=== PATIENT | female | born 1960 | race Caucasian/White ===

== ENCOUNTER → 2017-09-14 | Outpatient (CLI) | payer OTHER ==
--- NOTE | 2017-09-17 08:46 | MM ---
Reason for exam: screening (asymptomatic). Last mammogram was performed 2 years and 1 month ago. History: Patient is postmenopausal. Benign ultrasound-guided core biopsy of the right breast, September 05, 2001. Core biopsy of the right breast. Took hormonal contraceptives for 6 years. Physical Findings: A clinical breast exam by your physician is recommended on an annual basis and results should be correlated with mammographic findings. MG Screening Mammo w CAD Bilateral CC and MLO view(s) were taken. Prior study comparison: August 25, 2015, bilateral MG foundation screening mammo. June 23, 2013, bilateral digital screening mammo w/CAD. There are scattered fibroglandular densities. Asymmetric breast tissue in the left breast. This finding is changed when compared with previous exams. ASSESSMENT: Incomplete: need additional imaging evaluation, BI-RAD 0 RECOMMENDATION: Special view mammogram of the left breast. If lesion persists on supplemental views, image directed ultrasound is recommended. [facility] will attempt to contact patient to return for supplemental views and ultrasound if indicated.
== END | disposition home or self-care (01) ==
LOC: RADMAMWWP 13:27
PROVIDERS: ATTEND Obstetrics & Gynecology
DX: Z12.31 Encounter for screening mammogram for malignant neoplasm of breast (principal); Z80.41 Family history of malignant neoplasm of ovary
CPT/HCPCS: 86304; 36415; G0202

== ENCOUNTER → 2017-09-18 | Outpatient (CLI) | payer OTHER ==
--- NOTE | 2017-09-19 08:12 | MM ---
Reason for exam: additional evaluation requested from abnormal screening. Last mammogram was performed less than 1 month ago. History: Patient is postmenopausal. Benign ultrasound-guided core biopsy of the right breast, September 05, 2001. Core biopsy of the right breast. Took hormonal contraceptives for 6 years. Physical Findings: Nurse did not find any significant physical abnormalities on exam. MG Work Up Mamm w CAD LT CC and MLO view(s) were taken of the left breast. Prior study comparison: September 14, 2017, bilateral MG screening mammo w CAD. August 25, 2015, bilateral MG foundation screening mammo. June 23, 2013, bilateral digital screening mammo w/CAD. The breast tissue is heterogeneously dense. This may lower the sensitivity of mammography. 9mm isodense nodular asymmetry appears to become larger with spot compression and may localize to 2-3 o'clock on the lateral view. The anterior asymmetry does not persist. These results were verbally communicated with the patient and result sheet given to the patient on 09/18/17. ASSESSMENT: Incomplete: need additional imaging evaluation, BI-RAD 0 RECOMMENDATION: Ultrasound of the left breast. (upper outer quadrant).
--- NOTE | 2017-09-19 08:17 | USB ---
Reason for exam: additional evaluation requested from abnormal screening. History: Patient is postmenopausal. Benign ultrasound-guided core biopsy of the right breast, September 05, 2001. Core biopsy of the right breast. Took hormonal contraceptives for 6 years. US Breast Workup Limited LT Left breast ultrasound demonstrates a 4mm oval, cystic lesion at 1 o'clock, benign. This does not correspond to the mammographic finding, for which a 6 month follow up is recommended. These results were verbally communicated with the patient and result sheet given to the patient on 09/18/17. ASSESSMENT: Probably benign, BI-RAD 3 RECOMMENDATION: Follow-up diagnostic mammogram of the left breast in 6 months.
== END | disposition home or self-care (01) ==
LOC: RADMAMWWP 12:52
PROVIDERS: ATTEND Obstetrics & Gynecology
DX: R92.8 Other abnormal and inconclusive findings on diagnostic imaging of breast (principal)
CPT/HCPCS: 76642; G0206

== ENCOUNTER → 2019-02-06 | Outpatient (CLI) | payer OTHER ==
--- NOTE | 2019-02-07 10:31 | BD ---
EXAMINATION TYPE: Axial Bone Density DATE OF EXAM: 02/06/2019 COMPARISON: 02.15.2016 CLINICAL HISTORY: 58 YR OLD FEMALE....ICD-10 CODE: M89.9 DISORDER OF BONE Height: 62 Weight: 147 FRAX RISK QUESTIONS: NOTHING TO NOTE HERE RISK FACTORS HISTORY OF: NO FRACTURES AN ADULT Diet low in dairy products/other sources of calcium: YES A BIT LOW Postmenopausal woman: YES AT AGE 48 MEDICATIONS: Osteoporosis Medications: YES, FOSAMAX FOR 3 YRS Additional Medications: PROZAC, VIT D, Additional History: GLAUCOMA, EXAM MEASUREMENTS: Bone mineral densitometry was performed using the [employer] System. Bone mineral density as measured about the Lumbar spine is: ----- L1-L4(G/cm2): 1.084 T Score Values are as follows: ----- L1: -0.6 ----- L2: -1.7 ----- L3: -1.2 ----- L4: 0.1 ----- L1-L4: -0.8 Bone mineral density has: Increased 5.7% since study of: 02.15.2016 Bone mineral density about the R hip (g/cm2): 0.589 Bone mineral density about the L hip (g/cm2): 0.621 T Score values are as follows: -----R Neck: -2.9 -----L Neck: -2.7 -----R Total: -3.3 -----L Total: -3.1 Bone mineral density has: Increased 1.9% since study of: 02.15.2016 FRAX%s: THERE IS A 13.5% CHANCE FOR A MAJOR OSTEOPOROTIC FX AND A 3.4% FOR HIP.....PROBABILITY FOR FX IN 10 YRS TIME IMPRESSION: Osteoporosis bilateral femora. NOTE: T-SCORE=SD OF THE YOUNG ADULT MEAN.
--- NOTE | 2019-02-07 10:51 | MM ---
Reason for exam: screening (asymptomatic). Last mammogram was performed 1 year and 5 months ago. History: Patient is postmenopausal. Benign ultrasound-guided core biopsy of the right breast, September 05, 2001. Core biopsy of the right breast. Took hormonal contraceptives for 6 years. Physical Findings: A clinical breast exam by your physician is recommended on an annual basis and results should be correlated with mammographic findings. MG Screening Mammo w CAD Bilateral CC and MLO view(s) were taken. Prior study comparison: September 18, 2017, left breast MG work up mamm w CAD LT. September 14, 2017, bilateral MG screening mammo w CAD. The breast tissue is heterogeneously dense. This may lower the sensitivity of mammography. There is chronic nodularity in the right breast. No significant changes when compared with prior studies. ASSESSMENT: Benign, BI-RAD 2 RECOMMENDATION: Routine screening mammogram of both breasts in 1 year.
== END | disposition home or self-care (01) ==
LOC: RADMAMWWP 15:15
PROVIDERS: ATTEND Obstetrics & Gynecology
DX: Z12.31 Encounter for screening mammogram for malignant neoplasm of breast (principal); M81.0 Age-related osteoporosis without current pathological fracture; Z80.41 Family history of malignant neoplasm of ovary
CPT/HCPCS: 77067; 77080; 86304

== ENCOUNTER → 2019-03-25 | Outpatient (CLI) | payer OTHER ==
[2019-03-25 15:43] LABS: HCT 44.7 % (34.0-46.0); HGB 14.4 gm/dL (11.4-16.0); MCH 31.3 pg (25.0-35.0); MCHC 32.2 g/dL (31.0-37.0); Mean Platelet Volume 7.6; Platelet Count 231 k/uL (150-450); RBC 4.61 m/uL (3.80-5.40); RDW 14.1 % (11.5-15.5); WBC 5.5 k/uL (3.8-10.6)
[2019-03-25 18:59] LABS: Albumin 4.5 g/dL (3.80-4.90); Albumin/Globulin Ratio 2.65 (1.60-3.17); Anion Gap 5.6 mmol/L (4.00-12.00); Calcium 8.7 mg/dL (8.7-10.3); Carbon Dioxide 20.4 mmol/L (21.6-31.8); Globulin 1.7 g/dL (1.6-3.3); LDL Cholesterol,Calculated 154.2 mg/dL (0.0-131.0); Potassium 3.9 mmol/L (3.5-5.5); Total Bilirubin 0.5 mg/dL (0.3-1.2); Total Protein 6.2 g/dL (6.2-8.2); VLDL Calculation 18.8 mg/dL (5.00-40.00)
== END | disposition home or self-care (01) ==
LOC: LABWHC1 14:28
PROVIDERS: ATTEND Internal Medicine
DX: M81.0 Age-related osteoporosis without current pathological fracture (principal); N20.0 Calculus of kidney; E78.5 Hyperlipidemia, unspecified
CPT/HCPCS: 36415; 80053; 80061; 84443; 85027

== ENCOUNTER → 2020-10-19 | Outpatient (CLI) | payer SELFPAY | END | disposition home or self-care (01) | LOC: LABWHC1 13:52 | PROVIDERS: ATTEND Obstetrics & Gynecology | DX: Z12.73 Encounter for screening for malignant neoplasm of ovary (principal); Z80.41 Family history of malignant neoplasm of ovary | CPT/HCPCS: 36415; 86304 ==

== ENCOUNTER → 2020-10-21 | Outpatient (CLI) | payer OTHER ==
--- NOTE | 2020-10-25 08:26 | MM ---
Reason for exam: screening (asymptomatic). Last mammogram was performed 1 year and 8 months ago. History: Patient is postmenopausal. Benign ultrasound-guided core biopsy of the right breast, September 05, 2001. Core biopsy of the right breast. Took hormonal contraceptives for 6 years. Physical Findings: A clinical breast exam by your physician is recommended on an annual basis and results should be correlated with mammographic findings. MG Screening Mammo w CAD Bilateral CC and MLO view(s) were taken. Prior study comparison: February 06, 2019, bilateral MG screening mammo w CAD. September 18, 2017, left breast MG work up mamm w CAD LT. The breast tissue is heterogeneously dense. This may lower the sensitivity of mammography. There is chronic nodularity in the right breast. There is no discrete abnormality. ASSESSMENT: Negative, BI-RAD 1 RECOMMENDATION: Routine screening mammogram of both breasts in 1 year.
== END | disposition home or self-care (01) ==
LOC: RADMAMWWP 09:29
PROVIDERS: ATTEND Obstetrics & Gynecology
DX: Z12.31 Encounter for screening mammogram for malignant neoplasm of breast (principal)
CPT/HCPCS: 77067

== ENCOUNTER → 2022-02-06 | Outpatient (CLI) | payer OTHER ==
[2022-02-06 22:44] LABS: Anion Gap 9.8 mmol/L (10.00-18.00); Carbon Dioxide 18.7 mmol/L (20.0-27.5); Non-African American GFR(CKD) 52.6 (60.0-200.0)
== END | disposition home or self-care (01) ==
LOC: LABWHC1 15:03
PROVIDERS: ATTEND Ophthalmology
DX: Z51.81 Encounter for therapeutic drug level monitoring (principal); Z79.899 Other long term (current) drug therapy
CPT/HCPCS: 36415; 80051; 82565

== ENCOUNTER → 2023-09-25 | Outpatient (CLI) | payer BC ==
--- NOTE | 2023-09-25 11:12 | CT ---
EXAMINATION TYPE: CT abdomen pelvis wo con DATE OF EXAM: 09/25/2023 COMPARISON: None HISTORY: left flank pain. possible kidney stone CT DLP: 334.10 mGycm Examination of the solid and hollow viscera is limited given the lack of contrast. FINDINGS: LUNG BASES: No evidence for nodule. No evidence for infiltrate. LIVER/GB: The gallbladder is unremarkable. Simple cyst within the left hepatic lobe. PANCREAS: No pancreatic mass identified. No inflammatory process seen. SPLEEN: No evidence for splenomegaly. No intrasplenic lesions seen. ADRENALS: No adrenal nodules identified. No evidence for thickening. KIDNEYS: No evidence for renal mass. Distal left ureteral calculus 5 cm from the UVJ measures approxi mately 1.0 x 5 mm. There is moderate left-sided hydronephrosis. Cortical defects right kidney from pr ior insult. There are several nonobstructing calculi upper pole and mid pole as well as lower pole of the right kidney measuring up to 4 mm. No obstructive uropathy is seen on the right. BOWEL: Appendix has a normal appearance. No evidence of bowel obstruction. No inflammatory process. Lymph nodes: No evidence for adenopathy greater than 1 cm. Abdominal aorta: Atheromatous changes seen. No evidence for aneurysm. Genital organs: Left renal cystic lesion measures 3 cm. Consider ultrasound correlation. The uterus a nd right ovary are unremarkable. Other: No significant abnormality. IMPRESSION: Distal left ureteral calculus 5 cm from the UVJ measures approximately 1.0 x 5 mm. There is moderate left-sided hydronephrosis.
== END | disposition home or self-care (01) ==
LOC: RADCTMAIN 10:30
PROVIDERS: ATTEND Family Medicine
DX: N13.2 Hydronephrosis with renal and ureteral calculous obstruction (principal)
CPT/HCPCS: 74176

== ENCOUNTER → 2024-01-25 | Outpatient (CLI) | payer BC ==
--- NOTE | 2024-01-25 09:45 | MM ---
Reason for Exam: Clinical finding. Last mammogram was performed 3 year(s) and 3 month(s) ago. Indicated Problems: Lump or thickening of the right side for 2 Week(s). Patient History: Menarche at age 12. First Full-Term at age 21. Postmenopausal. Patient has history of breast feeding. Patient used Hormonal Contraceptives for 6 years. Core Biopsy on the Right side. 09/05/2001, Benign Ultrasound-Guided Core Biopsy on the right side. Mother had ovarian cancer at or over age 50. Risk Values: Radha 5 year model risk: 2.2%. NCI Lifetime model risk: 8.6%. Prior Study Comparison: 08/25/2015 Bilateral Screening Mammogram, [facility]. 09/14/2017 Bilateral Screening Mammogram, [facility]. 09/18/2017 Left Diagnostic Mammogram, [facility]. 02/06/2019 Bilateral Screening Mammogram, [facility]. 10/21/2020 Bilateral Screening Mammogram, [facility]. Tissue Density: The breasts are heterogeneously dense, which may obscure small masses. Findings: Analyzed By CAD. Pattern is asymmetric with slight increased density in the upper outer aspect of the right breast. This area is the area of the palpable abnormality. Compression views in this area which has some underlying spiculated density. Right medial lateral view is increased density at the palpable abnormality marker. There may be some retraction of the nipple on these images. Additional workup with ultrasound at the palpable abnormality is recommended. Left breast:No suspicious groups of microcalcifications, spiculated or lobular masses, architectural distortion or other secondary signs of malignancy are mammographically apparent. Overall Assessment: Incomplete: need additional imaging evaluation, BI-RAD 0 Management: Diagnostic Breast Ultrasound of the right breast. A negative mammogram report should not preclude additional follow up of suspicious palpable abnormalities. Patient should continue monthly self breast exam. A clinical breast exam by your physician is recommended on an annual basis and results should be correlated with mammographic findings. Electronically signed and approved by: Fortino Santiago D.O. Radiologis
== END ==
LOC: RADMAMWWP 08:37
PROVIDERS: ATTEND Family Medicine
DX: R92.333 Mammographic heterogeneous density, bilateral breasts (principal); Z78.0 Asymptomatic menopausal state
CPT/HCPCS: 77062; 77066

== ENCOUNTER → 2024-02-06 | Outpatient (CLI) | payer BC ==
--- NOTE | 2024-02-06 14:35 | BD ---
EXAMINATION TYPE: Axial Bone Density DATE OF EXAM: 02/06/2024 CLINICAL HISTORY: 63 years old Female. ICD-10 CODE: Z78.0 POST MENOPAUSAL STATUS Height: 62 in Weight: 136lbs FRAX RISK QUESTIONS: History of Fracture in Adulthood: madisyn wrists age 59 RISK FACTORS HISTORY OF: History of Wrist Fracture: madisyn wrists age 59 MEDICATIONS: Osteoporosis Medications: not now Which medication: Fosamax How Lon months EXAM MEASUREMENTS: Bone mineral densitometry was performed using the [employer] System. Bone mineral density as measured about the Lumbar spine is: ----- L1-L4(G/cm2): 1.052 T Score Values are as follows: ----- L1: -1.8 ----- L2: -1.6 ----- L3: 0.2 ----- L4: -1.1 ----- L1-L4: -1.1 Z Score Values are as follows: ----- L1: -0.2 ----- L2: 0.1 ----- L3: 1.8 ----- L4: 0.5 ----- L1-L4: 0.6 Bone mineral density has: Decreased -3.0% since study of: 02/06/2019 Bone mineral density about the R hip (g/cm2): 0.613 Bone mineral density about the L hip (g/cm2): 0.646 T Score values are as follows: -----R Neck: -3.0 -----L Neck: -2.7 -----R Total: -3.1 -----L Total: -2.9 Z Score values are as follows: -----R Neck: -1.5 -----L Neck: -1.2 -----R Total: -1.9 -----L Total: -1.6 Bone mineral density has: Increased 4.0% since study of: 02/06/2019 FRAX%s: The graph provided illustrates a 26.4% chance for a major osteoporotic fx and a 7.9% chance f or the hips probability for fx in 10 years time. IMPRESSION: Osteoporosis (T Score less than -2.5). There is increased fracture risk and therapy is usually indicated based on age. Re-Screen 1-2 years. NOTE: T-SCORE=SD OF THE YOUNG ADULT MEAN.
== END | disposition home or self-care (01) ==
LOC: RADBDWWP 07:54
PROVIDERS: ATTEND Family Medicine
DX: M85.89 Other specified disorders of bone density and structure, multiple sites (principal); M81.0 Age-related osteoporosis without current pathological fracture; Z78.0 Asymptomatic menopausal state
CPT/HCPCS: 77080

== ENCOUNTER → 2024-02-06 | Day surgery (SDC) | payer BC ==
--- NOTE | 2024-02-12 08:04 | MM ---
Reason for Exam: Post Procedure Mammogram. Last screening mammogram was performed less than 1 month ago. Patient History: Menarche at age 12. First Full-Term at age 21. Postmenopausal. Patient has history of breast feeding. Patient used Hormonal Contraceptives for 6 years. Core Biopsy on the Right side. 09/05/2001, Benign Ultrasound-Guided Core Biopsy on the right side. Mother had ovarian cancer at or over age 50. Risk Values: Radha 5 year model risk: 2.2%. NCI Lifetime model risk: 8.6%. Prior Study Comparison: 02/06/2019 Bilateral Screening Mammogram, [facility]. 10/21/2020 Bilateral Screening Mammogram, [facility]. 01/25/2024 Bilateral MG 3D diag mammo w/cad [facility], [facility]. Tissue Density: Right: The breasts are heterogeneously dense, which may obscure small masses. Pathology Description: Location: 11 o'clock. Marker Left Behind. Needle Type: Celero Cores: 4 Gauge: 12 Pathology Description: Location: 10 o'clock. Marker Left Behind. Needle Type: Celero Cores: 5 Gauge: 12 The procedure of ultrasound guided core biopsy was explained to the patient. Benefits, alternatives, and risks were discussed. An informed consent was then obtained. The patient was placed in supine positioning for imaging and for the procedure. The overlying skin was prepped and draped in usual sterile fashion. Lidocaine buffered with bicarbonate was used as anesthetic into the skin and subcutaneous tissue up to area of concern in the right 10:00 breast. A bowen was made with surgical scalpel. Under ultrasound guidance, a 12-gauge vacuum assisted biopsy gun device was used to obtain 3 core samples. The patient tolerated the procedure well without any immediate complication. The patient was kept in the radiology department for short stay after the procedure and then discharged home in stable condition. Postprocedure mammogram: The patient was transferred to mammography for physician ordered post procedure mammogram for clip placement verification. Impression: Successful, uncomplicated ultrasound guided core biopsy of area of concern in the right 10:00 breast, full pathology results to follow. Pathology Results: Result: Malignant, Invasive ductal carcinoma. Pathology and radiology were reviewed. Findings are concordant. A. 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 See Surgical Pathology Cancer Case Summary and Comment. B. 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 See Surgical Pathology Cancer Case Summary and Comment. Overall Assessment: Malignant Assessment: MG diagnostic mammo RT wo CAD - Right: Known biopsy proven malignancy, BI-RAD 6. Management: Surgical Consultation of the right breast. Electronically signed and approved by: Braden Villa M.D. Radiologis
== END ==
LOC: RADUSWWP 07:56
PROVIDERS: ATTEND Surgery
DX: C50.411 Malignant neoplasm of upper-outer quadrant of right female breast (principal)
CPT/HCPCS: 88305; 88342; 88341; 77065; 19083; 19084; A4648

== ENCOUNTER → 2024-02-14 | Outpatient (CLI) | payer BC ==
--- NOTE | 2024-02-14 08:56 | P.GSCN ---
History of Present Illness Consult date: 02/14/24 Reason for Consult: Right breast invasive ductal carcinoma Requesting physician: Francis Shetty History of present illness: Is a 63-year-old female seen in consultation for Dr. Shetty regarding a biopsy-proven right breast microinvasive ductal carcinoma. She underwent a bilateral mammogram on 01-25-2024. This revealed heterogeneously dense breast. The pattern was asymmetric with slight increased density in the upper outer aspect of the right breast. The area was in the area of a palpable abnormality. Compression views in this area revealed some spiculated changes. There was a question of some retraction of the nipple on the images. An ultrasound of the right breast was recommended. This was performed on the same date. The ultrasound revealed a heterogeneous mass within the 10 to 11 o'clock position 5 to 6 cm from the nipple. A second hypoechoic area which appeared to be separate was noted at the 11 o'clock position. Biopsy of both areas were recommended. She underwent an ultrasound-guided core biopsy on 02-06-2024. The lesion at 10:00 revealed invasive high-grade DCIS arising in a background of intermediate to high-grade DCIS. There is reason at 11:00 revealed a microinvasive ductal carcinoma arising in a background of intermediate to high-grade DCIS. The tumor is grade 3 tripple (-). The patient can feel some fullness in her right breast in the upper outer quadrant. It has not changed in size. She has had a right breast biopsy in the remote past which was benign. She is not complaining of any recent trauma or infection in the breast. She noted that the right nipple is also slightly inverted. The patient has not had a mammogram for several years until recently. Caffeine: occasional nicotine: none chocolate: occasional BCP: 2 years in remote past hormones: none Family History: mother: ovarian cancdr at 64 Hormonal History: menarche: 12 , breat fed: yes, age at first : 21 menopause: 47 hormone: none Surgical History: glaucoma cross eyed Medical History: kidney stones Social History: nicotine: none alcohol: three times a week/ vodka drugs: none Review of Systems - Constitutional Denies fever, Denies weight loss - EENT EENT Comment(s): glaucoma Eyes: denies blurred vision Ears: deny: decreased hearing (hearing aids), tinnitus Ears, nose, mouth and throat: Denies dysphagia - Breasts bilateral: as per HPI - Cardiovascular Denies chest pain, Denies shortness of breath - Respiratory Denies cough, Denies 7 - Gastrointestinal Reports as per HPI - Genitourinary Genitourinary Comment(s): kidney stones in the past Genitourinary: Denies dysuria Menstruation: Reports postmenopausal - Musculoskeletal Reports as per HPI - Integumentary Denies rash, Denies unusual bruising - Neurological Denies headaches, Denies syncope - Psychiatric Reports anxiety - Hematologic/Lymphatic Denies easy bleeding, Denies easy bruising - Allergic/Immunologic Reports as per HPI Past Medical History Past Medical History: Eye Disorder Additional Past Medical History / Comment(s): glaucoma History of Any Multi-Drug Resistant Organisms: None Reported Past Surgical History: No Surgical Hx Reported Past Anesthesia/Blood Transfusion Reactions: No Reported Reaction - Sexual Orientation/Gender Identity What was your sex assigned at ?: Female Do you identify as transgender: No How would you describe your gender identity?: Woman Do you think of your sexual orientation as: Straight/Heterosexual Past Psychological History: Anxiety Smoking Status: Former smoker Past Alcohol Use History: Occasional Additional Past Alcohol Use History / Comment(s): quit smoking in teens Past Drug Use History: None Reported Medications and Allergies Home Medications Medication Instructions Recorded Confirmed Type Latanoprost Ophth [Xalatan 0.005%] 1 drops BOTH EYES HS 01/28/24 01/28/24 History Sertraline [Zoloft] 50 mg PO DAILY 01/28/24 01/28/24 History Allergies Allergy/AdvReac Type Severity Reaction Status Date / Time No Known Allergies Allergy Verified 01/28/24 13:20 Surgical - Exam - Eyes normal ocular movement - ENT decreased hearing - Neck trachea midline - Respiratory normal respiratory effort, clear to auscultation - Cardiovascular Rhythm: regular Heart Sounds: normal: S1, S2 - Abdomen Abdomen: soft - Integumentary normal turgor - Neurologic no disoriented, no combative - Musculoskeletal normal gait - Psychiatric oriented to time, oriented to person, oriented to place, speech is normal, memory intact Breast Exam: BRA: 36C Inspection: bilateral grade 2 ptosis palpation: right breast: Ecchymosis at biopsy site, multi positional exam 6 x 4 cm palpable fullness in the upper outer quadrant region, there is some mild inversion of the nipple which reverts back to normal with examination Right axilla: No adenopathy of concern Left breast: Multi positional exam no dominant masses or nodules of concern Left axilla: No adenopathy of concern Results Mammogram and ultrasound reviewed. Assessment and Plan Assessment: Impression: 1. 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 Fibrocystic breast changes 3. Glaucoma Plan: 1. Presentation of case at tumor board 2. I will discuss the stage and treatment options with the patient and her son and further recommendation to follow CC: Dr. Shetty
[2024-02-14 09:13] VITALS: BP 134/83; PULSE 89; RESP 17; TEMP 97.9
== END ==
LOC: WWCWWP 08:01
PROVIDERS: ATTEND Surgery
DX: R92.8 Other abnormal and inconclusive findings on diagnostic imaging of breast (principal); D05.11 Intraductal carcinoma in situ of right breast; N60.11 Diffuse cystic mastopathy of right breast; H40.9 Unspecified glaucoma; N64.53 Retraction of nipple; N64.89 Other specified disorders of breast; Z87.891 Personal history of nicotine dependence

== ENCOUNTER → 2024-02-26 | Outpatient (CLI) | payer BC ==
--- NOTE | 2024-02-27 07:27 | CA ---
Transthoracic Echo Report Name: Skip Grover Age: 63 Gender: F : 1960 Exam Date: 02/26/2024 16:14 Exam Location: [facility] Ht (in): 62 Wt (lb): 135 Ordering Physician: Jillian Bañuelos MD Attending/Referring Phys: President Demetria Walters RDCS Procedure CPT: Indications: Z01.818 Chemo exposure Cardiac Hx: Technical Quality: Good Contrast 1: Total Dose (mL): Contrast 2: Total Dose (mL): MEASUREMENTS (Male / Female) Normal Values 2D ECHO LV Diastolic Diameter PLAX 4.4 cm 4.2 - 5.9 / 3.9 - 5.3 cm LV Systolic Diameter PLAX 3.1 cm IVS Diastolic Thickness 1.1 cm 0.6 - 1.0 / 0.6 - 0.9 cm LVPW Diastolic Thickness 1.1 cm 0.6 - 1.0 / 0.6 - 0.9 cm LV Relative Wall Thickness 0.5 RV Internal Dim ED PLAX 2.8 cm LA Systolic Diameter LX 3.5 cm 3.0 - 4.0 / 2.7 - 3.8 cm LV Diastolic Volume MOD 4C 92.7 cm??? LV Systolic Volume MOD 4C 37.4 cm??? LV Ejection Fraction MOD 4C 59.7 % LV Cardiac Index MOD 4C 2652.4 cm???/min???m??? LV Diastolic Length 4C 7.6 cm LV Systolic Length 4C 6.5 cm LV Diastolic Volume MOD 2C 73.2 cm??? LV Systolic Volume MOD 2C 27.8 cm??? LV Ejection Fraction MOD 2C 62.0 % LV Cardiac Index MOD 2C 2176.9 cm???/min???m??? LV Diastolic Length 2C 7.6 cm LV Systolic Length 2C 6.5 cm LA Volume 29.8 cm??? 18 - 58 / 22 - 52 cm??? LA Volume Index 18.1 cm???/m??? 16 - 28 cm???/m??? M-MODE Aortic Root Diameter MM 3.0 cm MV E Point Septal Separation 0.4 cm AV Cusp Separation MM 2.1 cm DOPPLER AV Peak Velocity 103.6 cm/s AV Peak Gradient 4.3 mmHg AI Peak Velocity 398.3 cm/s AI Peak Gradient 63.5 mmHg AI Pressure Half Time 902.5 ms MV Area PHT 3.3 cm??? Mitral E Point Velocity 63.2 cm/s Mitral A Point Velocity 81.0 cm/s Mitral E to A Ratio 0.8 MV Deceleration Time 229.1 ms FINDINGS Left Ventricle Left ventricular ejection fraction is estimated at 55-60 %. Left ventricular cavity size normal. Mildly increased septal wall thickness. Mildly increased posterior wall thickness. Normal left ventricular wall motion. Good LV systolic strain Right Ventricle Normal right ventricular size and function. Unable to estimate the right ventricular systolic pressure. Right Atrium Normal right atrial size. No right atrial thrombus or mass seen. Left Atrium Normal left atrial size. No left atrial thrombus or mass present. Mitral Valve Structurally normal mitral valve. [id number] mitral regurgitation. Anteriorly directed mitral regurgitation jet. Aortic Valve Trileaflet aortic valve. Mild aortic regurgitation. Tricuspid Valve Structurally normal tricuspid valve. No tricuspid stenosis, regurgitation or prolapse. Pulmonic Valve Structurally normal pulmonic valve. Trace pulmonic regurgitation. Pericardium No pericardial effusion. No pleural effusion. Aorta Normal size aortic root and proximal ascending aorta. CONCLUSIONS Normal LV systolic function. Mild left ventricular hypertrophy. Normal LV strain [id number] mitral regurgitation Previewed by: Dr. Reymundo Marcum MD (Electronically Signed) Final Date: 27 Feb 2024 07:27
== END | disposition home or self-care (01) ==
LOC: RADECHMAIN 16:03
PROVIDERS: ATTEND Internal Medicine
DX: Z01.818 Encounter for other preprocedural examination (principal); I34.0 Nonrheumatic mitral (valve) insufficiency; I51.7 Cardiomegaly; C50.411 Malignant neoplasm of upper-outer quadrant of right female breast; H40.9 Unspecified glaucoma
CPT/HCPCS: 93306

== ENCOUNTER → 2024-03-03 | Outpatient (CLI) | payer BC ==
--- NOTE | 2024-03-05 13:13 | BMR ---
EXAM DATE: 03/03/2024 EXAM DESCRIPTION: MRI-Breast Bilat (W/WO Contrast) INDICATION: Invasive high-grade ductal carcinoma. Right lateral breast lump. COMPARISON: Comparison is made with relevant prior imaging in PACS. CONTRAST: 6.0 cc of Gadavist TECHNIQUE: Multiplanar MRI imaging of both breasts was performed with a dedicated breast coil, before and after intravenous administration of gadolinium contrast, using the standard breast mass protocol. Computer-aided detection was used to aid in interpretation. Study was performed at [facility] with Radiologic interpretation by [facility]. FINDINGS: General breast composition: There are scattered areas of fibroglandular tissue Background parenchymal enhancement: Moderate FINDINGS: Right Breast: Review of the dynamic contrast-enhanced series shows non mass enhancement involving the entire upper breast extending from the upper outer quadrant to the upper inner quadrant, the entire area measures approximately 9.2x6.7 x4.4 cm (TV x AP x CC). A 2 biopsy clip markers are present in the central outer breast. There appears to be a single duct that is enhancing which extends from the non mass enhancement directly to the nipple. No lymphadenopathy. Left Breast: Review of the dynamic contrast-enhanced series shows 0.5 cm mass in the central slightly outer breast at mid depth ([id number]:408). The T2 weighted series shows scattered benign cysts. Miscellaneous findings:1.4 cm T2 hyperintense nonenhancing lesion in the left hepatic lobe consistent with a hepatic cyst. Similar subcentimeter hyper [id number] lesion in the right lobe, consistent with a benign cyst. IMPRESSION: Right Breast: BI-RADS Category6- Known biopsy proven malignancy Non mass enhancement involving the entire upper breast extending from the upper outer quadrant to the far inner quadrant spanning approximately 9.2 x 6.7 x 4.4 cm at the site of known malignancy. There appears to be a single duct that is enhancing which extends from the non mass enhancement directly to the nipple. No lymphadenopathy. Recommendation: Surgical and oncologic evaluation. Left Breast: BI-RADS Category 4- Suspicious 0.5 cm mass in this central slightly outer breast at mid depth for which targeted ultrasound and possible biopsy are recommended. Recommendation: Targeted ultrasound with possible ultrasound-guided biopsy. OVERALL ASSESSMENT -- BI-RADS 4 MTDD
== END | disposition home or self-care (01) ==
LOC: RADMRIMAIN 13:08
PROVIDERS: ATTEND Surgery
DX: C50.411 Malignant neoplasm of upper-outer quadrant of right female breast (principal); N63.20 Unspecified lump in the left breast, unspecified quadrant
CPT/HCPCS: 77049; A9585

== ENCOUNTER → 2024-03-04 | Outpatient (CLI) | payer BC ==
--- NOTE | 2024-03-05 10:30 | CT ---
EXAMINATION TYPE: CT Chest Abd Pelvis w con CT DLP: 629.90 mGycm, Automated exposure control for dose reduction was used. DATE OF EXAM: 03/04/2024 11:59 AM COMPARISON: CT abdomen pelvis 09/25/2023 CLINICAL INDICATION:Female, 63 years old with history of G50.411 breast ca; PH[facility], posterior for mets. Rt breast ca. Technique: CT Chest Abd Pelvis w con; Multiple axial images were obtained. Two-dimensional coronal an d sagittal reconstructions were obtained. Contrast used:100ml mL of Isovue 300 with IV Contrast, Oral contrast used: with Oral Contrast Findings: CHEST: LUNGS/ PLEURA: The lung parenchyma appears unremarkable. AIRWAY: Patent and unremarkable. HEART: Size within normal limits. MEDIASTINUM: No gross evidence of adenopathy. VASCULATURE: No aortic aneurysm. MUSCULOSKELETAL: No acute osseous abnormalities. SOFT TISSUES/LYMPH NODES: Unremarkable. LOWER NECK: No significant findings. ABDOMEN: ABDOMEN LIVER: 12 mm hypodense lesion in the left lobe of the liver is reidentified stable this is stable com pared to 09/25/2023. GALLBLADDER AND BILE DUCTS: Unremarkable. PANCREAS: Unremarkable. SPLEEN: Unremarkable. ADRENAL GLANDS: Unremarkable. KIDNEYS AND URETERS: No evidence of hydronephrosis or renal calculus. The ureters are unremarkable. PELVIS BLADDER: Unremarkable REPRODUCTIVE: Unremarkable. ABDOMEN & PELVIS STOMACH AND BOWEL: Stomach and duodenum are unremarkable. No evidence of bowel obstruction. A normal appendix is identified.1 PERITONEUM: No evidence of pneumoperitoneum or free fluid. VASCULATURE: No evidence of aortic aneurysm. MUSCULOSKELETAL: No acute osseous abnormalities . Sclerosis in S1 is somewhat worrisome for metas tatic disease. LYMPH NODES: No gross evidence for lymphadenopathy. SOFT TISSUE/ABDOMINAL WALL: Unremarkable IMPRESSION: A 12 mm low-density lesion in the liver is stable compared to 09/25/2023. Sclerosis in S1 is somewhat worrisome for metastatic disease.
== END | disposition home or self-care (01) ==
LOC: RADCTMAIN 09:47
PROVIDERS: ATTEND Surgery
DX: C50.411 Malignant neoplasm of upper-outer quadrant of right female breast (principal)
CPT/HCPCS: 71260; 74177; Q9967

== ENCOUNTER → 2024-03-06 | Outpatient (CLI) | payer BC ==
--- NOTE | 2024-03-06 12:22 | P.PN ---
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 Shetty regarding a biopsy-proven right breast microinvasive ductal carcinoma. She underwent a bilateral mammogram on 01-25-2024. This revealed heterogeneously dense breast. The pattern was asymmetric with slight increased density in the upper outer aspect of the right breast. The area was in the area of a palpable abnormality. Compression views in this area revealed some spiculated changes. There was a question of some retraction of the nipple on the images. An ultrasound of the right breast was recommended. This was performed on the same date. The ultrasound revealed a heterogeneous mass within the 10 to 11 o'clock position 5 to 6 cm from the nipple. A second hypoechoic area which appeared to be separate was noted at the 11 o'clock position. Biopsy of both areas were recommended. She underwent an ultrasound-guided core biopsy on 02-06-2024. The lesion at 10:00 revealed invasive high-grade DCIS arising in a background of intermediate to high-grade DCIS. There is reason at 11:00 revealed a microinvasive ductal carcinoma arising in a background of intermediate to high-grade DCIS. The tumor is grade 3 tripple (-). The patient can feel some fullness in her right breast in the upper outer quadrant. It has not changed in size. She has had a right breast biopsy in the remote past which was benign. She is not complaining of any recent trauma or infection in the breast. She noted that the right nipple is also slightly inverted. The patient has not had a mammogram for several years until recently. Breast MRI: Breast: 0.5 cm mass central slightly outer left breast 1.4 cm nonenhancing lesion in the left hepatic lobe consistent with hepatic cyst Right breast: Non-mass enhancement involving the entire upper breast extending from the upper outer quadrant to the upper inner quadrant, the entire area measures approximately 9.2 x 6.7 cm. A 2 biopsy clip markers are present in the central outer breast. There appears to be a single duct that is enhancing which extends from the non-mass enhancement directly to the nipple. Ultrasound of the left breast with possible ultrasound targeted biopsy of 0.5 cm mass was recommended genetic testing metastatic work up CT scan was done of the chest abdomen and pelvis Impression a 12 mm low-density lesion in the liver stable compared to 09-25-2023 Sclerosis at S1 somewhat worrisome for metastatic disease Await bone scan tumor board on 03-04-2024, recommendation breast MRI, PET scan, appointment with medical oncology, neoadjuvant chemotherapy Caffeine: occasional nicotine: none chocolate: occasional BCP: 2 years in remote past hormones: none Family History: mother: ovarian cancdr at 64 Hormonal History: menarche: 12 , breat fed: yes, age at first : 21 menopause: 47 hormone: none Surgical History: glaucoma cross eyed Medical History: kidney stones Social History: nicotine: none alcohol: three times a week/ vodka drugs: none Review of Systems - Constitutional Denies fever, Denies weight loss - EENT EENT Comment(s): glaucoma Eyes: denies blurred vision Ears: deny: decreased hearing (hearing aids), tinnitus Ears, nose, mouth and throat: Denies dysphagia - Breasts bilateral: as per HPI - Cardiovascular Denies chest pain, Denies shortness of breath - Respiratory Denies cough - Gastrointestinal Reports as per HPI - Genitourinary Genitourinary Comment(s): kidney stones in the past Genitourinary: Denies dysuria Menstruation: Reports postmenopausal - Musculoskeletal Reports as per HPI - Integumentary Denies rash, Denies unusual bruising - Neurological Denies headaches, Denies syncope - Psychiatric Reports anxiety - Hematologic/Lymphatic Denies easy bleeding, Denies easy bruising - Allergic/Immunologic Reports as per HPI Past Medical History Past Medical History: Eye Disorder Additional Past Medical History / Comment(s): glaucoma History of Any Multi-Drug Resistant Organisms: None Reported Past Surgical History: No Surgical Hx Reported Past Anesthesia/Blood Transfusion Reactions: No Reported Reaction - Sexual Orientation/Gender Identity What was your sex assigned at ?: Female Do you identify as transgender: No How would you describe your gender identity?: Woman Do you think of your sexual orientation as: Straight/Heterosexual Past Psychological History: Anxiety Smoking Status: Former smoker Past Alcohol Use History: Occasional Additional Past Alcohol Use History / Comment(s): quit smoking in teens Past Drug Use History: None Reported Medications and Allergies Home Medications Medication Instructions Recorded Confirmed Type Latanoprost Ophth [Xalatan 0.005%] 1 drops BOTH EYES HS 01/28/24 01/28/24 History Sertraline [Zoloft] 50 mg PO DAILY 01/28/24 01/28/24 History Objective - Constitutional General appearance: Present: cooperative - EENT Eyes: Present: EOMI ENT: Present: hearing grossly normal - Neck Neck: Present: normal ROM - Respiratory Respiratory: bilateral: CTA - Cardiovascular Heart sounds: normal: S1, S2 - Integumentary Integumentary: Present: normal turgor - Musculoskeletal Musculoskeletal: Present: gait normal - Psychiatric Psychiatric: Present: A&O x's 3, appropriate affect, intact judgment & insight - Additional findings Additional findings: Breast Exam: BRA: 36C Inspection: bilateral grade 2 ptosis palpation: right breast: multi positional exam 6 x 4 cm palpable fullness in the upper outer quadrant region, there is some mild inversion of the nipple which reverts back to normal with examination Right axilla: No adenopathy of concern Left breast: Multi positional exam no dominant masses or nodules of concern Left axilla: No adenopathy of concern Assessment and Plan Assessment: Impression: A 9 cm lesion right breast upper outer quadrant DCIS with at least microinvasion triple negative Case presented at tumor board Recommendation for neoadjuvant treatment Plan: ultrasound of the left breast to correlate with MRI findings with a biopsy of this area if this does not correlate consider MRI guided biopsy of the left breast Bone scan if not yet done patient declined this, she is concerned about radiation exposure Appointment medical oncology as soon as possible Follow-up here in 4 months She will start chemotherapy this month I have discussed this with the patient and her sonHarpal Harper understand and she will be seen in 4 months. CC: Dr. Shetty
[2024-03-06 12:56] VITALS: BP 120/73; PULSE 75; RESP 16; TEMP 98.3
== END ==
LOC: WWCWWP 12:00
PROVIDERS: ATTEND Surgery
DX: D05.11 Intraductal carcinoma in situ of right breast (principal); N63.22 Unspecified lump in the left breast, upper inner quadrant; N64.89 Other specified disorders of breast; N64.53 Retraction of nipple; Z87.891 Personal history of nicotine dependence

== ENCOUNTER → 2024-03-14 | Outpatient (CLI) | payer BC ==
--- NOTE | 2024-03-14 10:21 | USB ---
Reason for Exam: Additional evaluation requested from prior study. Patient History: Menarche at age 12. First Full-Term at age 21. Postmenopausal. Patient has history of breast feeding. Breast cancer, right, age 63. Patient used Hormonal Contraceptives for 6 years. 02/06/2024, US biopsy breast add'l VAD RT on the Right side. 02/06/2024, Malignant US biopsy breast VAD RT on the right side. Core Biopsy on the Right side. 09/05/2001, Benign Ultrasound-Guided Core Biopsy on the right side. Mother had ovarian cancer at or over age 50. Technique: Method: Whole Breast Handheld. Prior Study Comparison: 10/21/2020 Bilateral Screening Mammogram, [facility]. 01/25/2024 Bilateral MG 3D diag mammo w/cad RAOUL, [facility]. 02/06/2024 Right MG diagnostic mammo RT wo CAD, [facility]. Findings: The whole breast of the left breast, the axilla of the left breast and the retroareolar of the left breast were scanned. A complete US of all four quadrants of the breast, axilla, and retro-areolar region were reviewed. * At the 1:00 position, 5 cm from the nipple, there is a tiny 3 mm benign cyst. * At the 3:00 position, 5 cm from the nipple, there is a tiny 6 mm benign cyst possibly with some minimal internal debris. * No other solid or cystic lesion or axilla lymphadenopathy. * 6 month follow-up mammogram and MRI can be performed for reassessment of the left breast. Overall Assessment: Known biopsy proven malignancy, BI-RAD 6 Management: Surgical Consultation of the right breast. Diagnostic Breast MRI of the left breast in 6 months. Along with six-month follow-up diagnostic left breast mammogram. Electronically signed and approved by: Mago Ennis M.D. Radiologist
== END | disposition home or self-care (01) ==
LOC: RADUSWWP 09:34
PROVIDERS: ATTEND Surgery
DX: C50.411 Malignant neoplasm of upper-outer quadrant of right female breast (principal); R92.8 Other abnormal and inconclusive findings on diagnostic imaging of breast; Z78.0 Asymptomatic menopausal state; H40.9 Unspecified glaucoma

== ENCOUNTER → 2024-03-16 | Outpatient (CLI) | payer BC ==
--- NOTE | 2024-03-16 16:36 | MR ---
EXAMINATION TYPE: MR sacrum/coccyx wo/w con DATE OF EXAM: 03/16/2024 8:40 AM CLINICAL INDICATION:Female, 63 years old with history of C50.411 MALIG NEOPLM OF UPPER-OUTER QUADRANT OF RI; PHH, Abnormal CT, Hx Breast cancer, COMPARISON: CT 09/17/2023, 03/04/2024 TECHNIQUE: Triplane multisequence imaging was performed of the pelvis. IV Contrast: 6 cc Gadavist FINDINGS: Reproductive: Vagina: Unremarkable. Uterus: The uterus is incompletely visualized. Where visualized measures approximately 5.8 x 2.6 x 3. 8 cm. The endometrium is within normal limits for thickness. Junctional zones within the normal limit s. Ovaries: Probable left ovarian cyst measuring 3.2 cm. Bladder: Unremarkable. Bowel: Few scattered colonic diverticula are present. Peritoneum: A small amount of free fluid in the pelvis. Lymph nodes: No evidence of adenopathy. Vasculature: Unremarkable. Musculoskeletal: Sclerotic area within the sacrum near midline measuring 24 x 21 mm predominantly hig h T1 signal matching bone marrow 1 T1-weighted imaging. On fat suppression sequences. As near complet e loss of signal washout. Post contrast imaging does not demonstrate enhancement. Abdominal wall/soft tissues: Unremarkable. IMPRESSION: 1. No abnormal enhancement in the S1 vertebrae. Finding on CT is stable back to 09/17/2023 CT. Findi ngs favored represent focal fatty marrow and/or vascular malformation such as hemangioma. No suspicio us bony lesions. 2. Left ovarian cyst measuring up to 3.2 cm. Slightly increased from 09/25/2023. Consider ultrasound surveillance.
== END | disposition home or self-care (01) ==
LOC: RADMRIMAIN 07:42
PROVIDERS: ATTEND Internal Medicine
DX: N83.292 Other ovarian cyst, left side (principal); C50.411 Malignant neoplasm of upper-outer quadrant of right female breast
CPT/HCPCS: 72197; A9585

== ENCOUNTER 2024-04-03 11:19 | Day surgery (SDC) | payer BC ==
[2024-04-01 16:14] VITALS: BMI 24.7
[~2024-04-03 11:19] MED LIST: LACTATED RINGERS 1,000 ML IV SCH; LIDOCAINE 1% (10MG/ML) FOR IV START INTRADERMA PRN; METOCLOPRAMIDE 5 MG/ML 2 ML VIAL IVP PRN; Pre Op ABX Message 1 EACH MISC MISCELLANE ONE; fentaNYL (PF) 50 MCG/ML 2 ML AMP IV PRN
[2024-04-03] MEDS: IV FLUID CONTINUATION 1,000 ML IV ONE (11:43)
[2024-04-03] MEDS: DEXAMETHASONE SOD PHOSPHATE 4 MG/ML 1 ML VIAL IV ONE (12:13)
[2024-04-03] MEDS: LACTATED RINGERS 1,000 ML BAG IV STA (12:13)
[2024-04-03] MEDS: ONDANSETRON 4 MG/2 ML VIAL IVP ONE (12:14)
[2024-04-03] MEDS: HEPARIN SODIUM,PORCINE 5,000 UNIT/ML 1 ML VIAL SQ PRN (12:14)
[2024-04-03] MEDS: ACETAMINOPHEN TAB 500 MG TAB PO PRN (12:14)
[2024-04-03] MEDS ORDERED: PROPOFOL 10 MG/ML 20 ML VIAL IV ONE (12:51)
[2024-04-03] MEDS ORDERED: LIDOCAINE 1% INJ 10MG/ML (20 ML MDV) ONE (12:51)
[2024-04-03] MEDS ORDERED: ePHEDrine 50 MG/ML 1 ML VIAL ONE (12:51)
[2024-04-03] MEDS ORDERED: fentaNYL (PF) 50 MCG/ML 2 ML AMP ONE (12:51)
[2024-04-03] MEDS: LIDOCAINE 1% INJ 10MG/ML (20 ML MDV) SQ ONE ×2 (13:10)
[2024-04-03] MEDS: HEPARIN SODIUM,PORCINE 100 UNIT/ML 5 ML VIAL IV ONE ×2 (13:10→13:23)
[2024-04-03] MEDS: LACTATED RINGERS 1,000 ML IV ONE (13:26)
[2024-04-03] MEDS ORDERED: traMADol 50 MG TAB PO PRN (13:44)
[2024-04-03] MEDS ORDERED: NALOXONE 0.4 MG/ML 1 ML VIAL IV PRN (13:44)
--- NOTE | 2024-04-03 13:49 | P.OP ---
Date of Procedure: 04/03/24 Procedure(s) Performed: PREOPERATIVE DIAGNOSIS: Right breast cancer POSTOPERATIVE DIAGNOSIS: Same PROCEDURE: Port-A-Cath placement with fluoroscopic and ultrasound guidance SURGEON: Tasia EBL: 10 cc ANESTHESIA: General COMPLICATIONS: None OPERATIVE PROCEDURE: Patient was brought and placed on the operative table in the supine position. The patient was placed under general anesthesia at that time. The chest and neck were prepped and draped in usual sterile fashion. The ultrasound probe was used to identify the location of the left internal jugular vein. The skin was localized with lidocaine. The Seldinger needle was advanced into the IJ under ultrasound guidance. The wire was advanced through the needle under fluoroscopic guidance into the superior vena cava. A port pocket was created in the left infraclavicular location. The catheter was tunneled from the wire entrance site to the port pocket. The port was then connected to the catheter. The dilator introducer was threaded over the guidewire. The guidewire and dilator were then removed. The catheter was advanced through the introducer and introducer was then removed. The tip was seen to be in the right atrial junction via fluoroscopy. A picture of the radiograph showing the tip of the catheter was taken. Port was flushed with both saline and a Hep-Lock solution. There was good flow both in and out of the port. The port was sutured in underlying tissues using 3-0 silk sutures. The subcutaneous tissues were reapproximated using 3-0 Vicryl sutures and the skin at both locations using 4-0 Monocryl sutures. Skin glue and sterile dressings then applied. DISPOSITION: Stable to recovery room
[2024-04-03 13:53] VITALS: TEMP 97
--- NOTE | 2024-04-03 13:55 | FL ---
EXAMINATION TYPE: FL guided central line placemt Intraoperative/procedural fluoroscopic services were provided. CLINICAL INDICATION:Female, 63 years old with history of PORT A CATH INSERT; , [facility] Total fluoroscopy time is 1 minute min. DAP: 3.70 Gycm2 uGym2 Please see the operative/procedural note for further details.
[2024-04-03 14:36] VITALS: RESP 18
--- NOTE | 2024-04-03 14:51 | XR ---
EXAMINATION TYPE: XR chest 1V confirm line plcmt DATE OF EXAM: 04/03/2024 2:26 PM CLINICAL INDICATION:Female, 63 years old with history of Check line; [facility] COMPARISON: Chest radiographs from 11/10/2011 TECHNIQUE: XR chest 1V confirm line plcmt Frontal view of the chest. FINDINGS: Lungs/Pleura: There is no evidence of pleural effusion, focal consolidation, or pneumothorax. Pulmonary vascularity: Unremarkable. Heart/mediastinum: Cardiomediastinal silhouette is unremarkable. Musculoskeletal: No acute osseous pathology. Other findings: None Lines/Tubes: [id number] projecting over the left hemithorax with distal tip at the cavoatrial junction. IMPRESSION: No acute cardiopulmonary disease/process.
[2024-04-03 15:23] VITALS: BP 111/64; PULSE 70
== END 2024-04-03 15:29 | disposition home or self-care (01) ==
LOC: OR 11:19
PROVIDERS: ATTEND Surgery
DX: C50.411 Malignant neoplasm of upper-outer quadrant of right female breast (principal)
CPT/HCPCS: 77001; 36561; C1788; J1644; J1642; J1100; J2405; J2001; J3010; J2704

== ENCOUNTER → 2024-05-16 | Outpatient (CLI) | payer BC ==
--- NOTE | 2024-05-16 09:47 | USB ---
Reason for Exam: Clinical finding. Patient History: Menarche at age 12. First Full-Term at age 21. Postmenopausal. Patient has history of breast feeding. Breast cancer, right, age 63. Patient used Hormonal Contraceptives for 6 years. 02/06/2024, US biopsy breast add'l VAD RT on the Right side. 02/06/2024, Malignant US biopsy breast VAD RT on the right side. Core Biopsy on the Right side. 09/05/2001, Benign Ultrasound-Guided Core Biopsy on the right side. Mother had ovarian cancer at or over age 50. Technique: Method: Targeted. Prior Study Comparison: 10/21/2020 Bilateral Screening Mammogram, [facility]. 01/25/2024 Bilateral MG 3D diag mammo w/cad RAOUL, [facility]. 02/06/2024 Right MG diagnostic mammo RT wo CAD, [facility]. Findings: The axilla of the right breast was scanned. Targeted right axillary ultrasound at the site of physician palpated abnormality. There is a benign lymph node measuring 2.0 x 1.2 x 0.5 cm within uniform cortex and large fatty hilum. No other solid or cystic lesion or suspicious lymphadenopathy. Overall Assessment: Known biopsy proven malignancy, BI-RAD 6 Management: Surgical Consultation of the right breast. Diagnostic Mammogram of the left breast in 4 months. Breast MRI in 4 months as well to reassess the questioned left side finding that has no sonographic correlate. Appropriate surgical and oncologic management of the right breast, known breast cancer. Results were given to the patient verbally at the time of exam. Electronically signed and approved by: Mago Ennis M.D. Radiologist
== END | disposition home or self-care (01) ==
LOC: RADUSWWP 09:19
PROVIDERS: ATTEND Internal Medicine
DX: C50.411 Malignant neoplasm of upper-outer quadrant of right female breast (principal); Z78.0 Asymptomatic menopausal state

== ENCOUNTER → 2025-02-12 | Outpatient (CLI) | payer BC ==
--- NOTE | 2025-02-12 07:43 | USB ---
Patient History: Menarche at age 12. First Full-Term at age 21. Postmenopausal. Patient has history of breast feeding. Breast cancer, right, age 63. Patient used Hormonal Contraceptives for 6 years. 02/06/2024, US biopsy breast add'l VAD RT on the Right side. 02/06/2024, Malignant US biopsy breast VAD RT on the right side. Core Biopsy on the Right side. 09/05/2001, Benign Ultrasound-Guided Core Biopsy on the right side. Mother had ovarian cancer at or over age 50. Technique: Method: Targeted. Prior Study Comparison: 10/21/2020 Bilateral Screening Mammogram, [facility]. 01/25/2024 Bilateral MG 3D diag mammo w/cad RAOUL, [facility]. 02/06/2024 Right MG diagnostic mammo RT wo CAD, [facility]. Findings: The area of palpable concern of the left breast, the axilla of the left breast and the retroareolar of the left breast were scanned. A complete US of all four quadrants of the breast and retro-areolar region were reviewed. No solid or cystic masses are identified. The undersigned was also present at real-time imaging. Ultrasound of the left breast demonstrates 3 mixed lesions at the incision. Left 3:00 3 cm from the nipple measuring 7 x 6 mm, left 6:00 position 1 cm from the nipple measuring 1.3 x 0.7 cm and a third lesion at the left 9:00 position 1 cm the nipple measuring 1.1 x 0.8 cm. These lesions could reflect residual hematomas as patient indicates large hematoma following mastectomy. Complex seromas are an additional consideration. Lesions of other etiology are not excluded. Short-term follow-up in 3 months is recommended. Any increase in size may warrant biopsy. Correlate clinically. Overall Assessment: Probably benign, BI-RAD 3 Management: Diagnostic Breast Ultrasound of the left breast in 3 months. A clinical breast exam by your physician is recommended on an annual basis and results should be correlated with mammographic findings. This exam should not preclude additional follow-up of suspicious palpable abnormalities. Results were given to the patient verbally at the time of exam. [facility], , 02/12/2025 7:40 AM. Electronically signed and approved by: Braden Villa M.D. Radiologis
== END | disposition home or self-care (01) ==
LOC: RADUSWWP 07:02
PROVIDERS: ATTEND Internal Medicine
DX: Z85.3 Personal history of malignant neoplasm of breast (principal); Z78.0 Asymptomatic menopausal state; Z92.0 Personal history of contraception

== ENCOUNTER → 2025-05-14 | Outpatient (CLI) | payer BC ==
--- NOTE | 2025-05-14 13:27 | USB ---
Reason for Exam: Follow-up at short interval from prior study. Patient History: Menarche at age 12. First Full-Term at age 21. Postmenopausal. Patient has history of breast feeding. Breast cancer, right, age 63. Patient used Hormonal Contraceptives for 6 years. 02/06/2024, US biopsy breast add'l VAD RT on the Right side. 02/06/2024, Malignant US biopsy breast VAD RT on the right side. Core Biopsy on the Right side. 09/05/2001, Benign Ultrasound-Guided Core Biopsy on the right side. Mother had ovarian cancer at or over age 50. Technique: Method: Targeted. Prior Study Comparison: 10/21/2020 Bilateral Screening Mammogram, [facility]. 01/25/2024 Bilateral MG 3D diag mammo w/cad RAOUL, [facility]. 02/06/2024 Right MG diagnostic mammo RT wo CAD, [facility]. Findings: The lower section of the breast of the left breast, the axilla of the left breast and the retroareolar of the left breast were scanned. A of the postmastectomy left breast, axilla and retro-areolar region were reviewed. At the 3:00 position 3 cm from the nipple there is a solid nodule measuring 4 x 4 mm. At the 6:00 position 1 cm from the nipple there is a solid nodule measuring 8 x 5 mm At the 9:00 position 1 cm from the nipple line there is a solid nodule measuring 1 x 0.5 x 0.9 cm. Overall Assessment: Suspicious, BI-RAD 4 Management: Ultrasound Core Biopsy of the left breast. A clinical breast exam by your physician is recommended on an annual basis and results should be correlated with mammographic findings. This exam should not preclude additional follow-up of suspicious palpable abnormalities. Results were given to the patient verbally at the time of exam. [facility], , 05/14/2025 1:25 PM. Electronically signed and approved by: Jarett De Leon M.D. Radiologis
== END | disposition home or self-care (01) ==
LOC: RADUSWWP 13:01
PROVIDERS: ATTEND Internal Medicine
DX: C50.411 Malignant neoplasm of upper-outer quadrant of right female breast (principal); Z78.0 Asymptomatic menopausal state; Z92.0 Personal history of contraception; Z85.3 Personal history of malignant neoplasm of breast